=== PATIENT | male | born 1990 | race Caucasian/White ===

== ENCOUNTER 2021-08-24 08:47 | Emergency (ER) | payer BC ==
[2021-08-24] MEDS ORDERED: Dexamethasone 10 MG/ML SDV IM STA (09:06)
== END 2021-08-24 09:20 | disposition home or self-care (01) ==
LOC: MW.ED 08:47
DX: J01.90 Acute sinusitis, unspecified (principal)
CPT/HCPCS: 96372; 99283; J1100